=== PATIENT | female | born 1965 | race Caucasian/White ===

== ENCOUNTER 2017-08-21 11:32 | Observation (INO) | payer OTHER ==
[2017-08-21] VITALS (9 sets, daily range): BP systolic 96–124; BP diastolic 49–60; PULSE 53–68; RESP 17–19; TEMP 97.1–99.5; O2SAT 97–100
[~2017-08-21 11:32] MED LIST: ARIP1TAB16 PO; CELE40TA PO; CHOL1TAB27 PO; CIPR500T2 PO; CITRTAB8 PO; ETHINYL ESTRADIOL PO; LEVONORGESTREL PO; META10CA PO; MULT-120 PO; VITA10002 PO
--- NOTE | 2017-08-21 12:01 | PD ---
HPI Chief Complaint: General Weakness Time Seen by Provider: 11:48 Travel History International Travel<30 days: No Contact w/Intl Traveler<30days: No Traveled to known affect area: No History of Present Illness HPI 51-year-old female with PMH of iron deficiency anemia, gastric bypass presents to the ED for evaluation of 3 day history of feeling weak. Patient endorses mild dizziness upon standing that resolves in a few seconds. She endorses a single episode of left-sided chest pain yesterday that resolved after a few seconds. She denies palpitations, shortness of breath, nausea, vomiting, diaphoresis, abdominal pain, dysuria. She states that she's been menstruating for 12 days. Heavier bleeding than normal. Stopped bleeding yesterday, light spotting today. She states that she saw her primary care provider today regarding these symptoms and had a fingerstick hemoglobin of 6.6. She states that she's been receiving weekly iron infusions, last treatment 6 days ago. She is followed by Dr. Zapata. She does not have a offset plate maker. PFSH Past Medical History Blood Disorders: No Depression: Yes Cancer: No Cardiovascular Problems: No Diabetes: No Endocrine: No GERD: Yes Genitourinary: Yes (HX STONES) Hepatitis: No Hiatal Hernia: No Immune Disorder: No Musculoskeletal: Yes (SEVERE NECK PAIN C6-7 WITH NUMBNESS LEFT ARM & HAND ) Neurologic: No Psychiatric: Yes (DEPRESSION ) Reproductive: No Respiratory: Yes (HX SLEEP APNEA- NO CPAP SINCE GASTRIC BYPASS) Sleep Apnea: Yes (uses cpap) Thyroid Disease: No ?: Unknown LMP: july 2017 Ovarian Cysts: Yes (RIGHT OVARY REMOVED) Past Surgical History Abdominal Surgery: Yes (GUCCI ; LAP GASTRIC BY-PASS) AICD: No Body Medical Devices: NONE Cardiac Surgery: No Ear Surgery: No Eye Surgery: No Genitourinary Surgery: No Gynecologic Surgery: Yes (RIGHT OOPHORECTOMY) Joint Replacement: No Neurologic Surgery: No Oral Surgery: Yes (T&A) Pacemaker: No Thoracic Surgery: No Other Surgery: Yes (BILATERAL CARPAL TUNNEL) Social History Alcohol Use: No Tobacco Use: No Substance Use: No Allergies-Medications (Allergen,Severity, Reaction): Coded Allergies: insect venom (Unverified Allergy, Severe, HIVES; SEVERE SWELLING, 08/21/17 ) acetaminophen (Unverified Allergy, Intermediate, Hives, 08/21/17) PT FEET SWOLLEN, HANDS SWOLLEN, THROAT SWOLLEN, ITCHING, BURNING oxycodone (Unverified Allergy, Intermediate, Hives, 08/21/17) PT FEET SWOLLEN, HANDS SWOLLEN, THROAT SWOLLEN, ITCHING, BURNING morphine (Unverified Adverse Reaction, Severe, Itching, 08/21/17) Reported Meds & Prescriptions Reported Meds & Active Scripts Active [levonorgestrel/EE] 1 Tab PO DAILY levonorgestrel/ EE 0.1mg/ 20mcg tabs (Lutera or alternate generic equivalent) Reported Abilify (Aripiprazole) 2 Mg Tab 2 Mg PO DAILY Celexa (Citalopram Hydrobromide) 40 Mg Tab 40 Mg PO DAILY Review of Systems Except as stated in HPI: all other systems reviewed are Neg Physical Exam Narrative GENERAL: Well-nourished, well-developed white female in no acute distress. SKIN: Focused skin assessment warm/dry. HEAD: Normocephalic. EYES: No scleral icterus. No injection or drainage. NECK: Supple, trachea midline. No JVD or lymphadenopathy. CARDIOVASCULAR: Regular rate and rhythm without murmurs, gallops, or rubs. RESPIRATORY: Breath sounds clear and equal bilaterally. No accessory muscle use. GASTROINTESTINAL: Abdomen soft, non-tender, nondistended. Active bowel sounds. MUSCULOSKELETAL: No cyanosis, or edema. BACK: Nontender without obvious deformity. No CVA tenderness. Data Data Last Documented VS Vital Signs Date Time Temp Pulse Resp B/P (MAP) Pulse Ox O2 Delivery O2 Flow Rate FiO2 08/21/17 11:51 52 08/21/17 11:50 99.1 17 124/60 (81) 100 Room Air Orders Orders Complete Blood Count With Diff (08/21/17 11:47) Coag Profile (08/21/17 11:47) Type And Screen (08/21/17 11:47) Urinalysis - C+S If Indicated (08/21/17 11:57) Ed Urine Pregnancytest Poc (08/21/17 11:57) Electrocardiogram (08/21/17 ) Red Blood Cells (Rbc) (08/21/17 12:46) Blood Product Administration (08/21/17 12:46) Sodium Chlor 0.9% 250 Ml Inj (Ns 250 Ml (08/21/17 13:00) Comprehensive Metabolic Panel (08/21/17 12:00) Direct Bilirubin (08/21/17 12:00) Troponin I (08/21/17 12:00) Calcium Carbonate (Oscal) (08/21/17 13:00) Admit Order (Ed Use Only) (08/21/17 13:30) Labs Laboratory Tests Test 08/21/17 12:00 08/21/17 12:05 White Blood Count 6.0 TH/MM3 Red Blood Count 2.47 MIL/MM3 Hemoglobin 7.4 GM/DL Hematocrit 21.9 % Mean Corpuscular Volume 88.6 FL Mean Corpuscular Hemoglobin 30.0 PG Mean Corpuscular Hemoglobin Concent 33.9 % Red Cell Distribution Width 17.8 % Platelet Count 263 TH/MM3 Mean Platelet Volume 7.4 FL Neutrophils (%) (Auto) 61.0 % Lymphocytes (%) (Auto) 29.0 % Monocytes (%) (Auto) 8.4 % Eosinophils (%) (Auto) 0.8 % Basophils (%) (Auto) 0.8 % Neutrophils # (Auto) 3.7 TH/MM3 Lymphocytes # (Auto) 1.7 TH/MM3 Monocytes # (Auto) 0.5 TH/MM3 Eosinophils # (Auto) 0.0 TH/MM3 Basophils # (Auto) 0.0 TH/MM3 CBC Comment DIFF FINAL Differential Comment Prothrombin Time 9.9 SEC Prothromb Time International Ratio 0.9 RATIO Activated Partial Thromboplast Time 24.3 SEC Blood Urea Nitrogen 8 MG/DL Creatinine 0.85 MG/DL Random Glucose 87 MG/DL Total Protein 6.2 GM/DL Albumin 3.1 GM/DL Calcium Level 7.8 MG/DL Alkaline Phosphatase 67 U/L Aspartate Amino Transf (AST/SGOT) 14 U/L Alanine Aminotransferase (ALT/SGPT) 23 U/L Total Bilirubin 0.2 MG/DL Direct Bilirubin LESS THAN 0.1 MG/DL Sodium Level 140 MEQ/L Potassium Level 4.2 MEQ/L Chloride Level 108 MEQ/L Carbon Dioxide Level 25.8 MEQ/L Anion Gap 6 MEQ/L Estimat Glomerular Filtration Rate 71 ML/MIN Troponin I LESS THAN 0.02 NG/ML Urine Color LIGHT-YELLOW Urine Turbidity CLEAR Urine pH 5.0 Urine Specific [place] 1.007 Urine Protein NEG mg/dL Urine Glucose (UA) NEG mg/dL Urine Ketones NEG mg/dL Urine Occult Blood SMALL Urine Nitrite NEG Urine Bilirubin NEG Urine Urobilinogen LESS THAN 2.0 MG/DL Urine Leukocyte Esterase LARGE Urine RBC 1 /hpf Urine WBC 6 /hpf Urine Squamous Epithelial Cells 3 /hpf Urine Bacteria RARE /hpf Urine Mucus FEW /lpf Microscopic Urinalysis Comment CULT NOT INDICATED MDM Medical Decision Making Medical Screen Exam Complete: Yes Emergency Medical Condition: Yes Differential Diagnosis Iron deficiency anemia versus dysmenorrhea versus symptomatic anemia versus other Narrative Course 51-year-old female with PMH of iron deficiency anemia, gastric bypass presents to the ED for evaluation of 3 day history of feeling weak. Patient endorses mild dizziness upon standing that resolves in a few seconds. She endorses a single episode of left-sided chest pain yesterday that resolved after a few seconds. She denies palpitations, SOB, N/V, diaphoresis, abdominal pain, dysuria. She states that she had a 12 day menses this month, heavier than normal. Bleeding stopped yesterday, light spotting today. PCP Dr. Zapata performs annual pelvic exam. Vitals reviewed. Physical exam is reassuring. EKG rate 53, sinus bradycardia. ME interval 134, QRS 95, QTc 454 ms. Normal axis. No acute ST changes. Reviewed by Dr. Quintanilla Troponin: Negative 1 CBC: Hemoglobin 7.4. Hematocrit 21.9 CMP: Calcium 7.8. INR 0.9. UA: No culture indicated ED arm. ONLINE MEDIA BUYER negative. Discussed the results of workup with the patient. I recommended transfusing 2 units PRBC and observation in the hospital overnight. Patient's agreeable to this plan. 2 units PRBCs ordered, pending type and screen. I discussed the patient with the residents who agree to accept the patient to the medicine service under Dr. Zapata. Please see medicine notes for disposition. Elise Pelaez Aug 21, 2017 12:01
[2017-08-21 12:28] LABS: BACTERIA, URINE RARE /hpf; BLOOD, URINE SMALL (NEG); COMMENT (UR) CULT NOT INDICATED; CULTURE IF INDICATED CULT NOT INDICATED; GLUCOSE,URINE NEG (NEG); KETONE, URINE NEG (NEG); MUCUS URINE FEW /lpf (OCC); NITRITE,URINE NEG (NEG); SQUAMOUS EPITHELIAL CELL URINE 3 /hpf (0-5); URINE COLOR LIGHT-YELLOW (YELLW/STRAW)
[2017-08-21 12:29] LABS: AUTOMATED NEUTROPHIL # 3.7 TH/MM3 (1.8-7.7); BASOPHIL % 0.8 % (0.0-2.0); EOSINOPHIL % 0.8 % (0.0-4.0); HEMATOCRIT 21.9 % (35.0-46.0); HEMO FLAGS DIFF FINAL; LYMPHOCYTE # 1.7 TH/MM3 (1.0-4.8); MEAN CELL VOLUME 88.6 FL (80.0-100.0); MEAN CORPUSCULAR HGB CONC 33.9 % (32.0-36.0); MONO % 8.4 % (0.0-8.0); PLATELET COUNT 263 TH/MM3 (150-450); RED BLOOD COUNT 2.47 MIL/MM3 (4.00-5.30); RED CELL DISTRIBUTION WIDTH 17.8 % (11.6-17.2)
[2017-08-21 12:37] LABS: APTT (PATIENT) 24.3 SEC (24.3-30.1); INTERNATIONAL NORMALIZED RATIO 0.9 RATIO; PROTHROMBIN TIME - PATIENT 9.9 SEC (9.8-11.6)
[2017-08-21 12:46] LABS: ANION GAP 6 MEQ/L (5-15); BICARBONATE 25.8 MEQ/L (21.0-32.0); BLOOD UREA NITROGEN 8 MG/DL (7-18); CHLORIDE 108 MEQ/L (98-107); GLOMERULAR FILTRATION RATE 71 ML/MIN (>89); POTASSIUM 4.2 MEQ/L (3.5-5.1); SODIUM (NA) 140 MEQ/L (136-145)
[2017-08-21] MEDS ORDERED: SODIUM CHLOR 0.9% 250 ML INJ 250 ML IV ONE (13:00)
[2017-08-21] MEDS ORDERED: CALCIUM CARBONATE 1.25 GM (CA 500 MG) TAB PO ONE (13:00)
[2017-08-21 13:04] LABS: ALT (GPT) 23 U/L (10-53); AST (GOT) 14 U/L (15-37)
[2017-08-21 13:05] LABS: TOTAL BILIRUBIN ADULT 0.2 MG/DL (0.2-1.0)
[2017-08-21 13:08] LABS: ALKALINE PHOSPHATASE 67 U/L (45-117)
--- NOTE | 2017-08-21 13:34 | PD ---
Physical Exam Date Seen by Provider: Aug 21, 2017 Time Seen by Provider: 12:00 Narrative I, Dr. Sloan, have reviewed the advance practice practitioner's documentation and am in agreement, met with the patient face to face, made the diagnosis, and the medical decision making was done by me. *My assessment and Findings: Patient seen and evaluated with JESSICA Brantley, please see JESSICA note for further details. Patient is here for significant anemia, has been having dysfunctional uterine bleeding for about 12 days, feeling more tired , and lab work done at physician's office shows a hemoglobin of 6.6. She is sent in for further evaluation and workup as well as treatment with transfusions. Laboratory Tests Test 08/21/17 12:00 08/21/17 12:05 Red Blood Count 2.47 MIL/MM3 (4.00-5.30) Hemoglobin 7.4 GM/DL (11.6-15.3) Hematocrit 21.9 % (35.0-46.0) Red Cell Distribution Width 17.8 % (11.6-17.2) Monocytes (%) (Auto) 8.4 % (0.0-8.0) Total Protein 6.2 GM/DL (6.4-8.2) Albumin 3.1 GM/DL (3.4-5.0) Calcium Level 7.8 MG/DL (8.5-10.1) Aspartate Amino Transf (AST/SGOT) 14 U/L (15-37) Chloride Level 108 MEQ/L (98-107) Estimat Glomerular Filtration Rate 71 ML/MIN (>89) Troponin I LESS THAN 0.02 NG/ML Urine Occult Blood SMALL (NEG) Urine Leukocyte Esterase LARGE (NEG) Urine WBC 6 /hpf (0-5) Urine Bacteria RARE /hpf (NONE) Urine Mucus FEW /lpf (OCC) Lab work shows a low hemoglobin and PRBCs were ordered for treatment. Plan to admit for further treatment. Data Data Last Documented VS Vital Signs Date Time Temp Pulse Resp B/P (MAP) Pulse Ox O2 Delivery O2 Flow Rate FiO2 08/21/17 11:51 52 08/21/17 11:50 99.1 17 124/60 (81) 100 Room Air Orders Orders Complete Blood Count With Diff (08/21/17 11:47) Coag Profile (08/21/17 11:47) Type And Screen (08/21/17 11:47) Urinalysis - C+S If Indicated (08/21/17 11:57) Ed Urine Pregnancytest Poc (08/21/17 11:57) Electrocardiogram (08/21/17 ) Red Blood Cells (Rbc) (08/21/17 12:46) Blood Product Administration (08/21/17 12:46) Sodium Chlor 0.9% 250 Ml Inj (Ns 250 Ml (08/21/17 13:00) Comprehensive Metabolic Panel (08/21/17 12:00) Direct Bilirubin (08/21/17 12:00) Troponin I (08/21/17 12:00) Calcium Carbonate (Oscal) (08/21/17 13:00) Admit Order (Ed Use Only) (08/21/17 13:30) Labs Laboratory Tests Test 08/21/17 12:00 08/21/17 12:05 White Blood Count 6.0 TH/MM3 Red Blood Count 2.47 MIL/MM3 Hemoglobin 7.4 GM/DL Hematocrit 21.9 % Mean Corpuscular Volume 88.6 FL Mean Corpuscular Hemoglobin 30.0 PG Mean Corpuscular Hemoglobin Concent 33.9 % Red Cell Distribution Width 17.8 % Platelet Count 263 TH/MM3 Mean Platelet Volume 7.4 FL Neutrophils (%) (Auto) 61.0 % Lymphocytes (%) (Auto) 29.0 % Monocytes (%) (Auto) 8.4 % Eosinophils (%) (Auto) 0.8 % Basophils (%) (Auto) 0.8 % Neutrophils # (Auto) 3.7 TH/MM3 Lymphocytes # (Auto) 1.7 TH/MM3 Monocytes # (Auto) 0.5 TH/MM3 Eosinophils # (Auto) 0.0 TH/MM3 Basophils # (Auto) 0.0 TH/MM3 CBC Comment DIFF FINAL Differential Comment Prothrombin Time 9.9 SEC Prothromb Time International Ratio 0.9 RATIO Activated Partial Thromboplast Time 24.3 SEC Blood Urea Nitrogen 8 MG/DL Creatinine 0.85 MG/DL Random Glucose 87 MG/DL Total Protein 6.2 GM/DL Albumin 3.1 GM/DL Calcium Level 7.8 MG/DL Alkaline Phosphatase 67 U/L Aspartate Amino Transf (AST/SGOT) 14 U/L Alanine Aminotransferase (ALT/SGPT) 23 U/L Total Bilirubin 0.2 MG/DL Direct Bilirubin LESS THAN 0.1 MG/DL Sodium Level 140 MEQ/L Potassium Level 4.2 MEQ/L Chloride Level 108 MEQ/L Carbon Dioxide Level 25.8 MEQ/L Anion Gap 6 MEQ/L Estimat Glomerular Filtration Rate 71 ML/MIN Troponin I LESS THAN 0.02 NG/ML Urine Color LIGHT-YELLOW Urine Turbidity CLEAR Urine pH 5.0 Urine Specific [place] 1.007 Urine Protein NEG mg/dL Urine Glucose (UA) NEG mg/dL Urine Ketones NEG mg/dL Urine Occult Blood SMALL Urine Nitrite NEG Urine Bilirubin NEG Urine Urobilinogen LESS THAN 2.0 MG/DL Urine Leukocyte Esterase LARGE Urine RBC 1 /hpf Urine WBC 6 /hpf Urine Squamous Epithelial Cells 3 /hpf Urine Bacteria RARE /hpf Urine Mucus FEW /lpf Microscopic Urinalysis Comment CULT NOT INDICATED MDM Medical Record Reviewed: Yes Supervised Visit with PRASHANTH: Yes Diagnosis Primary Impression: Irregular menstruation Additional Impression: Anemia Admitting Information Admitting Physician Requests: Admit Ivy Sloan MD Aug 21, 2017 13:34
[2017-08-21] MEDS ORDERED: SODIUM CHLORIDE 0.9% FLUSH 10 ML FLUSH IV FLUSH PRN (13:45)
[2017-08-21] MEDS ORDERED: ARIP2 PO (13:48)
--- NOTE | 2017-08-21 14:16 | HHI.HP ---
[facility] Service Family Medicine Primary Care Physician Sarai Dyer MD Admission Diagnosis symptomatic anemia Diagnoses: International Travel<30 Days: No Contact w/Intl Traveler<30days: No Known Affected Area: No History of Present Illness 51 yr old w/ PMHx of gastric bypass surgery in 2009, sent from [facility] [place] to ED for symptomatic anemia. She is a patient of Dr. Dyer. Patient reports feeling weak and fatigue for the past month. She reports feeling faint upon standing for a few second. She went to see her PCP this AM. Fingerstick glucose was 6.6. She has been menstruating for the last 14 days. States that her menstruation has been heavy with big clots. She has had to change her pad every 45-1 hr and was using on average 10pads/day. On the 13th day of her menstruation, her bleeding subsided and is lightly spotting. She complains of LLQ, intermittent, sharp abdominal pain. She had a single episode of CP that resolved yesterday. She denies fevers, palpitations, diarrhea, SOB, N/V, and dysuria. She's had hx of RUBY due to gastric bypass surgery. She has been receiving weekly iron infusions, 2 total. Last infusion was on 08/16. HOUSEKEEPING STAFF Hx: , 1 miscarriage, right oophorectomy 2001; last pap smear was 2 years ago- normal, reports pap smears have been normal per patient, per chart review. hx of ASCUS 2007; takes levonorgestrel for control (Karyn Vann MD R1) Review of Systems Constitutional: COMPLAINS OF: Fatigue, Weight gain (reports gaining 35lbs in 11 months ), Dizziness, DENIES: Fever, Change in appetite Endocrine: COMPLAINS OF: Heat/cold intolerance (cold intolerance ) Ears, nose, mouth, throat: DENIES: Vertigo Respiratory: DENIES: Shortness of breath Cardiovascular: DENIES: Chest pain, Palpitations, Syncope Gastrointestinal: COMPLAINS OF: Abdominal pain (LLQ abdominal pain ), DENIES: Constipation, Diarrhea, Nausea, Vomiting Genitourinary: COMPLAINS OF: Abnormal vaginal bleeding (heavy bleeding ), DENIES: Dysuria Musculoskeletal: DENIES: Muscle aches Hematologic/lymphatic: DENIES: Bruising Neurologic: DENIES: Headache (Karyn Vann MD R1) Past Family Social History Past Medical History metabolic syndrome Hx Morbid Obesity now s/p bariatric surgery with good result. Hepatic hemangioma Abnormal pap (resolved) Cervical spondylosis with bilateral upper extremity paresthesias. Carpal tunnel syndrome. Chronic pelvic pain. Endometriosis. Female infertility. Renal calculi. Seasonal rhinitis. Ovarian dermoid cyst. Atypical Depression. Past Surgical History Cspine sg February 2015 (C5/6, C6/7 fusion with cadaveric graft) RUQ mass resection (path "fibroadipose mass", benign 02/05 Gastric Bypass November 2009. Tonsillectomy. Right oophorectomy 2001. Carpal tunnel surgical release. (Karyn Vann MD R1) Allergies: Coded Allergies: insect venom (Unverified Allergy, Severe, HIVES; SEVERE SWELLING, 08/21/17 ) acetaminophen (Unverified Allergy, Intermediate, Hives, 08/21/17) PT FEET SWOLLEN, HANDS SWOLLEN, THROAT SWOLLEN, ITCHING, BURNING oxycodone (Unverified Allergy, Intermediate, Hives, 08/21/17) PT FEET SWOLLEN, HANDS SWOLLEN, THROAT SWOLLEN, ITCHING, BURNING morphine (Unverified Adverse Reaction, Severe, Itching, 08/21/17) Family History + depression, htn, hyperlipidemia. mom 70: hyperlipidemia, breast cancer dad 70: PUD, hyperlipidemia paternal grandpa stroke/ [place]/ ASHD, throat [place], currently 90 Social History , mother of 1 adopted child, works as elementary music sound light technician, Denies tob, ETOH or illicits. (Karyn Vann MD R1) Physical Exam Vital Signs Vital Signs Date Time Temp Pulse Resp B/P (MAP) Pulse Ox O2 Delivery O2 Flow Rate FiO2 08/21/17 11:51 52 08/21/17 11:50 99.1 53 17 124/60 (81) 100 Room Air Physical Exam GENERAL: pleasant lady, in NAD SKIN: No rashes, ecchymoses or lesions. Cool and dry. HEAD: Atraumatic. Normocephalic. EYES: PERRLA, conjunctival pallor ENT: Throat clear NECK: Trachea midline. No JVD or lymphadenopathy. . CARDIOVASCULAR:Bradycardic 52-59. Regular rhythm, no m/r/g . Capillary refill less than 2 sec. RESPIRATORY: Clear to auscultation. Breath sounds equal bilaterally. No wheezes , rales, or rhonchi. GASTROINTESTINAL: Abdomen soft, non-tender, nondistended. No hepato-splenomegaly , or palpable masses. No guarding. MUSCULOSKELETAL: no cyanosis or edema NEUROLOGICAL: Awake, alert, oriented x3 Laboratory Laboratory Tests Test 08/21/17 12:00 08/21/17 12:05 White Blood Count 6.0 Red Blood Count 2.47 Hemoglobin 7.4 Hematocrit 21.9 Mean Corpuscular Volume 88.6 Mean Corpuscular Hemoglobin 30.0 Mean Corpuscular Hemoglobin Concent 33.9 Red Cell Distribution Width 17.8 Platelet Count 263 Mean Platelet Volume 7.4 Neutrophils (%) (Auto) 61.0 Lymphocytes (%) (Auto) 29.0 Monocytes (%) (Auto) 8.4 Eosinophils (%) (Auto) 0.8 Basophils (%) (Auto) 0.8 Neutrophils # (Auto) 3.7 Lymphocytes # (Auto) 1.7 Monocytes # (Auto) 0.5 Eosinophils # (Auto) 0.0 Basophils # (Auto) 0.0 CBC Comment DIFF FINAL Differential Comment Prothrombin Time 9.9 Prothromb Time International Ratio 0.9 Activated Partial Thromboplast Time 24.3 Blood Urea Nitrogen 8 Creatinine 0.85 Random Glucose 87 Total Protein 6.2 Albumin 3.1 Calcium Level 7.8 Alkaline Phosphatase 67 Aspartate Amino Transf (AST/SGOT) 14 Alanine Aminotransferase (ALT/SGPT) 23 Total Bilirubin 0.2 Direct Bilirubin LESS THAN 0.1 Sodium Level 140 Potassium Level 4.2 Chloride Level 108 Carbon Dioxide Level 25.8 Anion Gap 6 Estimat Glomerular Filtration Rate 71 Troponin I LESS THAN 0.02 Urine Color LIGHT-YELLOW Urine Turbidity CLEAR Urine pH 5.0 Urine Specific [place] 1.007 Urine Protein NEG Urine Glucose (UA) NEG Urine Ketones NEG Urine Occult Blood SMALL Urine Nitrite NEG Urine Bilirubin NEG Urine Urobilinogen LESS THAN 2.0 Urine Leukocyte Esterase LARGE Urine RBC 1 Urine WBC 6 Urine Squamous Epithelial Cells 3 Urine Bacteria RARE Urine Mucus FEW Microscopic Urinalysis Comment CULT NOT INDICATED (Karyn Vann MD R1) Result Diagram: 08/21/17 1200 08/21/17 1200 Caprini VTE Risk Assessment Caprini VTE Risk Assessment: No/Low Risk (score <= 1) Caprini Risk Assessment Model Point Value = 1 Point Value = 2 Point Value = 3 Point Value = 5 Age 41-60 Minor surgery BMI > 25 kg/m2 Swollen legs Varicose veins or History of unexplained or recurrent spontaneous Oral contraceptives or hormone replacement Sepsis (< 1 month) Serious lung disease, including pneumonia (< 1 month) Abnormal pulmonary function Acute myocardial infarction Congestive heart failure (< 1 month) History of inflammatory bowel disease Medical patient at bed rest Age 61-74 Arthroscopic surgery Major open surgery (> 45 min) Laparoscopic surgery (> 45 min) Malignancy Confined to bed (> 72 hours) Immobilizing plaster cast Central venous access Age >= 75 History of VTE Family history of VTE Factor V Leiden Prothrombin [id number] Lupus anticoagulant Anticardiolipin antibodies Elevated serum homocysteine Heparin-induced thrombocytopenia Other congenital or acquired thrombophilia Stroke (< 1 month) Elective arthroplasty Hip, pelvis, or leg fracture Acute spinal cord injury (< 1 month) Prophylaxis Regimen Total Risk Factor Score Risk Level Prophylaxis Regimen 0-1 Low Early ambulation 2 Moderate Order ONE of the following: *Sequential Compression Device (SCD) *Heparin 5000 units SQ BID 3-4 Higher Order ONE of the following medications: *Heparin 5000 units SQ TID *Enoxaparin/Lovenox 40 mg SQ daily (WT < 150 kg, CrCl > 30 mL/min) *Enoxaparin/Lovenox 30 mg SQ daily (WT < 150 kg, CrCl > 10-29 mL/min) *Enoxaparin/Lovenox 30 mg SQ BID (WT < 150 kg, CrCl > 30 mL/min) AND/OR *Sequential Compression Device (SCD) 5 or more Highest Order ONE of the following medications: *Heparin 5000 units SQ TID (Preferred with Epidurals) *Enoxaparin/Lovenox 40 mg SQ daily (WT < 150 kg, CrCl > 30 mL/min) *Enoxaparin/Lovenox 30 mg SQ daily (WT < 150 kg, CrCl > 10-29 mL/min) *Enoxaparin/Lovenox 30 mg SQ BID (WT < 150 kg, CrCl > 30 mL/min) AND *Sequential Compression Device (SCD) (Karyn Vann MD R1) Assessment and Plan Assessment and Plan 51 yr old w/ hx of gastric bypass admitted for symptomatic anemia secondary to abnormal uterine bleeding. Code Status Full code Discussed Condition With Dr. Dyer and Dr. Meraz (Karyn Vann MD R1) Attending Attestation THIS CASE WAS DISCUSSED WITH THE RESIDENT PHYSICIAN. I HAVE REVIEWED THE RECORD AND AGREE WITH THE ABOVE NOTE AND PLAN OF CARE WAS DISCUSSED. I HAVE AUTHORIZED THE ORDER FOR PLACEMENT IN OUT-PATIENT OBSERVATION STATUS. (Sarai Dyer MD) Problem List: (1) Symptomatic anemia ICD Codes: D64.9 - Anemia, unspecified Status: Acute Plan: H/H: 7.4/21.9, patient endorses weakness and fatigue. Symptomatic anemia most likely secondary to heavy menstrual bleeding * 2 units of RBCs ordered, recheck H & H immediately post-transfusion, if Hb <8 , will transfuse another 1 unit of RBCs * CBC ordered for the AM (2) Irregular menstruation ICD Codes: N92.6 - Irregular menstrual cycle Status: Acute Plan: Hx of 14 days of heavy bleeding, now light spotting. Last pap smear was 2 years ago, normal. Hx of ASCUS (resolved). * US pelvis Comp with transvaginal ordered (3) Chest pain ICD Codes: R07.9 - Chest pain, unspecified Status: Resolved Plan: Reports 1 episode of left-sided chest pain that resolved yesterday * EKG revealed sinus bradycardia * troponin wnl (4) Depression ICD Codes: F32.9 - Depression Status: Acute Plan: Continue home meds * Celexa 40 mg PO daily * Abilify 2mg PO daily Permanent Comment: With exacerbation Last Edited By: Mary Waters on Jun 04, 2013 16:52 (5) Nutrition, metabolism, and development symptoms ICD Codes: R63.8 - Other symptoms and signs concerning food and fluid intake Plan: Diet: Regular Basic Fluids: None at this time vitals q4h, monitor I & Os (Karyn Vann MD R1) Karyn Vann MD R1 Aug 21, 2017 14:16 Sarai Dyer MD Aug 22, 2017 11:52
--- NOTE | 2017-08-21 15:54 | RADRPT ---
EXAM DATE/TIME: 08/21/2017 14:38 [place] COMPARISON: No previous studies available for comparison. INDICATIONS : Bleeding for two weeks. Anemia. MEDICAL HISTORY : Bulging disc. GERD. Right ovary cysts. Right ovarian dermoid. SURGICAL HISTORY : Tonsillectomy. Cholecystectomy. Gastric bypass. Oophorectomy. Kidney stones. Bilateral carpal tunne l release. ENCOUNTER: Initial ACUITY: 1 day PAIN SCORE: 0/10 LOCATION: Bilateral pelvis MEASUREMENTS: UTERUS: 9.0 x 5.9 x 4.4 cm ENDOMETRIAL STRIPE: 3 mm RIGHT OVARY: Surgically absent LEFT OVARY: 3.5 x 2.6 x 1.7 cm FINDINGS: UTERUS: The myometrium is heterogeneous. 3 small intramural uterine fibroids. These do not distort the endome trial canal. The largest involves the fundus measuring 2.7 cm. This one is more subserosal in nature. RIGHT OVARY: Ovary contains no mass or significant cystic lesion. LEFT OVARY: The lateral border of the left ovary is somewhat obscured. This is associated with a focus of echogen icity without shadowing. There is a questionable exophytic echogenic mass from this region of the ova ry. This measures approximately 5 mm in diameter. MISCELLANEOUS: No free fluid. CONCLUSION: 1. Small intramural fibroids without distortion of the endometrial canal. 2. 5 mm echogenic focus exophytic from the lateral margin the left ovary. I am unsure if this relates to a true lesion. Consideration could be made to CT scan of the pelvis with IV contrast to further e valuate. Mj León Jr., MD on August 21, 2017 at 15:43 Board Certified Radiologist. This report was verified electronically.
[2017-08-21 17:34] LABS: HEMATOCRIT 22.1 % (35.0-46.0); REVIEW FLAG FINAL
[2017-08-21] MEDS: SODIUM CHLORIDE 0.9% FLUSH 10 ML FLUSH IV FLUSH SCH (20:45)
[2017-08-22 00:05] VITALS: BP 94/53; PULSE 56; RESP 18; TEMP 99; O2SAT 96
[2017-08-22 02:12] LABS: AUTOMATED NEUTROPHIL # 2.5 TH/MM3 (1.8-7.7); BASOPHIL # 0.1 TH/MM3 (0-0.2); BASOPHIL % 1.3 % (0.0-2.0); EOSINOPHIL # 0.1 TH/MM3 (0-0.4); EOSINOPHIL % 1.9 % (0.0-4.0); HEMATOCRIT 25.5 % (35.0-46.0); HEMO FLAGS DIFF FINAL; LYMPH % 39.3 % (9.0-44.0); LYMPHOCYTE # 2.1 TH/MM3 (1.0-4.8); MEAN CELL VOLUME 87.7 FL (80.0-100.0); MEAN CORPUSCULAR HEMOGLOBIN 28.7 PG (27.0-34.0); MEAN CORPUSCULAR HGB CONC 32.7 % (32.0-36.0); MONO % 9.8 % (0.0-8.0); NEUT % 47.7 % (16.0-70.0); PLATELET COUNT 226 TH/MM3 (150-450); RED BLOOD COUNT 2.91 MIL/MM3 (4.00-5.30); RED CELL DISTRIBUTION WIDTH 16.3 % (11.6-17.2); WHITE BLOOD COUNT 5.2 TH/MM3 (4.0-11.0)
[2017-08-22 02:44] LABS: ALT (GPT) 17 U/L (10-53); ANION GAP 7 MEQ/L (5-15); AST (GOT) 12 U/L (15-37); BICARBONATE 26.5 MEQ/L (21.0-32.0); BLOOD UREA NITROGEN 11 MG/DL (7-18); CHLORIDE 108 MEQ/L (98-107); GLOMERULAR FILTRATION RATE 63 ML/MIN (>89); SODIUM (NA) 141 MEQ/L (136-145)
[2017-08-22 02:46] LABS: ALKALINE PHOSPHATASE 56 U/L (45-117); TOTAL BILIRUBIN ADULT 0.3 MG/DL (0.2-1.0)
[2017-08-22 05:10] VITALS: BP 94/51; PULSE 58; RESP 18; TEMP 98.4; O2SAT 98
--- NOTE | 2017-08-22 08:12 | HHI.FPPN ---
Subjective Remarks No acute events overnight. s/p 2 units of RBCs. Afebrile. VSS. Patient reports feeling better post-transfusion. She endorses mild fatigue. She denies dizziness , CP, SOB, N/V, and abdominal pain. (Karyn Vann MD R1) Objective Vitals Vital Signs Date Time Temp Pulse Resp B/P (MAP) Pulse Ox O2 Delivery O2 Flow Rate FiO2 08/22/17 05:10 98.4 58 18 94/51 (65) 98 08/22/17 00:05 99.0 56 18 94/53 (67) 96 08/21/17 20:33 99.5 60 18 96/53 (67) 97 08/21/17 18:01 97.5 68 18 100/49 98 08/21/17 17:20 98.2 55 18 100/51 99 08/21/17 16:56 97.8 55 18 105/54 97 08/21/17 16:34 97.1 58 18 107/55 99 08/21/17 16:30 97.1 54 18 107/55 (72) 98 08/21/17 15:08 (81) 08/21/17 14:57 99.4 59 19 105/52 100 08/21/17 14:41 99.3 56 17 97/51 99 08/21/17 11:51 52 08/21/17 11:50 99.1 53 17 124/60 (81) 100 Room Air I/O 08/21/17 08/21/17 08/21/17 08/22/17 08/22/17 08/22/17 07:00 15:00 23:00 07:00 15:00 23:00 Intake Total 15 ml 840 ml Balance 15 ml 840 ml Intake Packed Cells 800 ml Blood Product IV Normal Saline Flush 15 ml 40 ml (Karyn Vann MD R1) Result Diagram: 08/22/1714008/22/17140 Objective Remarks GENERAL: slightly fatigue, lying in bed, NAD. CARDIOVASCULAR: Regular rate and rhythm without murmurs, gallops, or rubs. RESPIRATORY: Breath sounds equal bilaterally. No accessory muscle use. GASTROINTESTINAL: Abdomen soft, non-tender, nondistended. EXTREMITIES: No cyanosis, or edema. (Karyn Vann MD R1) A/P Assessment and Plan 51 yr old w/ hx of gastric bypass admitted for symptomatic anemia secondary to abnormal uterine bleeding. (Karyn Vann MD R1) Attending Attestation Patient seen and examined. Case reviewed and discussed with the resident team. Agree with plan of care as discussed with me and documented in the resident note. (Sarai Dyer MD) Problem List: (1) Symptomatic anemia ICD Codes: D64.9 - Anemia, unspecified Status: Acute Plan: H/H: 7.4/21.9 on admission. patient endorses weakness and fatigue. Symptomatic anemia most likely secondary to heavy menstrual bleeding * s/p 2 units of RBCs * H/H: 8/3/25.5 post-transfusion * H/H this AM 9.0/27.4, patient stable for discharge today (2) Irregular menstruation ICD Codes: N92.6 - Irregular menstrual cycle Status: Acute Plan: Hx of 14 days of heavy bleeding, now light spotting. Last pap smear was 2 years ago, normal. Hx of ASCUS (resolved). * US pelvis Comp with transvaginal revealed small intramural fibroids w/o distortion of the endometrial canal. 2.5mm echogenic focus exophytic from the lateral margin of the left ovary. 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 (3) Chest pain ICD Codes: R07.9 - Chest pain, unspecified Status: Resolved Plan: Reports 1 episode of left-sided chest pain that resolved yesterday * EKG revealed sinus bradycardia * troponin wnl (4) Depression ICD Codes: F32.9 - Depression Status: Acute Plan: Continue home meds * Celexa 40 mg PO daily * Abilify 2mg PO daily Permanent Comment: With exacerbation Last Edited By: Mary Waters on Jun 04, 2013 16:52 (5) Nutrition, metabolism, and development symptoms ICD Codes: R63.8 - Other symptoms and signs concerning food and fluid intake Plan: Diet: Regular Basic Fluids: None at this time vitals q4h, monitor I & Os (Karyn Vann MD R1) Karyn Vann MD R1 Aug 22, 2017 08:12 Sarai Dyer MD Aug 22, 2017 11:57
[2017-08-22] MEDS ORDERED: ETHINYL ESTRADIOL PO SCH (09:00)
[2017-08-22] MEDS ORDERED: ARIPiprazole 2 MG TAB PO SCH (09:00)
[2017-08-22] MEDS ORDERED: CITALOPRAM HYDROBROMIDE 40 MG TAB PO SCH (09:00)
[2017-08-22] MEDS ORDERED: LEVONORGESTREL PO SCH (09:00)
--- NOTE | 2017-08-22 09:14 | HHI.DCPOC ---
Discharge Care Plan Diagnosis: (1) Irregular menstruation (2) Symptomatic anemia Goals to Promote Your Health * To prevent worsening of your condition and complications * To maintain your health at the optimal level Directions to Meet Your Goals Take your medications as prescribed Follow your dietary instruction Follow activity as directed Keep your appointments as scheduled Take your immunizations and boosters as scheduled If your symptoms worsen call your PCP, if no PCP go to Urgent Care Center or Emergency Room Smoking is Dangerous to Your Health. Avoid second hand smoke Call the 24-hour hour crisis hotline for domestic abuse at Karyn Vann MD R1 Aug 22, 2017 09:14
[2017-08-22] MEDS: SODIUM CHLORIDE 0.9% FLUSH 10 ML FLUSH IV FLUSH SCH (09:42)
[2017-08-22 10:14] VITALS: BP 108/55; PULSE 66; RESP 20; O2SAT 98
[2017-08-22 10:32] LABS: HEMATOCRIT 27.4 % (35.0-46.0); REVIEW FLAG FINAL
--- NOTE | 2017-08-22 18:01 | EKG ---
Date Performed: 08/21/2017 Time Performed: 12:14:58 PTAGE: 51 years EKG: SINUS BRADYCARDIA Since previous tracing, no significant change noted BORDERLINE ECG PREVIOUS TRACING : 01/29/2014 10.55 DOCTOR: Isi Millan Interpretating Date/Time 08/22/2017 18:01:01
== END 2017-08-22 11:54 | disposition home or self-care (01) ==
LOC: NEPC 11:32 → NEDA 13:32 → NEPFCDU 15:05
PROVIDERS: ADMIT Family Medicine; ATTEND Family Medicine
DX: R53.1 Weakness (principal); D64.9 Anemia, unspecified; N92.6 Irregular menstruation, unspecified; R10.32 Left lower quadrant pain; R07.9 Chest pain, unspecified; K21.9 Gastro-esophageal reflux disease without esophagitis; R53.83 Other fatigue; R42 Dizziness and giddiness; N83.201 Unspecified ovarian cyst, right side; D18.03 Hemangioma of intra-abdominal structures; N20.0 Calculus of kidney; Z98.84 Bariatric surgery status; M47.812 Spondylosis without myelopathy or radiculopathy, cervical region; R20.2 Paresthesia of skin
CPT/HCPCS: 36430; 76830; 76856; 80053; 81001; 82248; 84484; 84703; 85014; 85018; 85025; 85610; 85730; 86850; 86900; 86901; 86920; 93005; 96360; 99285; G0378; J7050; P9016